=== PATIENT | male | born 1960 | race Caucasian/White ===

== ENCOUNTER 2016-10-19 14:18 | Inpatient (IN) | payer BC, OTHER ==
[~2016-10-19] VITALS: Ht 180.3 cm; Wt 97.6 kg
--- NOTE | 2016-10-19 14:50 | ED GU-Male ---
General Chief Complaint: -Male Stated Complaint: R TESTICAL PAIN Source: patient Exam Limitations: no limitations History of Present Illness Time seen by provider: 14:48 Initial Comments To ER with right testicular pain since 10/15/16. He believes they got "tangled up in his boxers". No dysuria. Pain improved a little bit on 10/16 but then recurred on the and has been constant since then. No fevers or chills. He does have a history of left testicular swelling secondary to mumps orchitis as a young child. Denies any known trauma to the testicle. Primary care is Lizzie Diaz in [place] Timing/Duration: constant, week, getting worse Severity/Quality: moderate Location: scrotal Radiation: none Activities at Onset: none Prior Genitourinary Problems: none Associated Symptoms: No dysuria Allergies and Home Medications Allergies Coded Allergies: No Known Drug Allergies (Unverified , 10/19/16) Home Medications No Active Prescriptions or Reported Meds Constitutional: see HPI EENTM: see HPI Respiratory: no symptoms reported Cardiovascular: no symptoms reported Genitourinary: see HPI Musculoskeletal: no symptoms reported Skin: no symptoms reported Psychiatric/Neurological: No Symptoms Reported Endocrine: No Symptoms Reported Past Twdylvh-Irzuzq-Hmqjpw Hx Patient Social History Recent Foreign Travel: No Contact w/Someone Who Travel: No Physical Exam Vital Signs Vital Sign - Last 12Hours 10/19/16 14:48 Temp 98.5 Pulse 89 Resp 16 B/P (MAP) 132/83 Pulse Ox 97 O2 Delivery Room Air Capillary Refill : General Appearance: WD/WN, no apparent distress HEENT: PERRL/EOMI, normal ENT inspection Neck: non-tender, full range of motion Respiratory: normal breath sounds, no respiratory distress, no accessory muscle use Gastrointestinal: normal bowel sounds, non tender, soft Male: erythema, testicular tenderness (right testicle is markedly enlarged with tenderness. There is erythema of the overlying skin and induration of the overlying skin and I find it difficult to move the scrotal skin over the testicle.) Genital/Rectal: other (there is no crepitus on palpation of the scrotal skin. The skin however is erythematous and adherent to the testicle.) Extremities: normal range of motion, non-tender Neurologic/Psychiatric: alert, normal mood/affect, oriented x 3 Skin: normal color, warm/dry Progress/Results/Core Measures Results/Orders Lab Results Laboratory Tests Test 10/19/16 14:58 Range/Units White Blood Count 18.3 H 4.3-11.0 10^3/uL Red Blood Count 4.45 4.35-5.85 10^6/uL Hemoglobin 15.6 13.3-17.7 G/DL Hematocrit 44 40-54 % Mean Corpuscular Volume 99 80-99 FL Mean Corpuscular Hemoglobin 35 H 25-34 PG Mean Corpuscular Hemoglobin Concent 36 32-36 G/DL Red Cell Distribution Width 13.6 10.0-14.5 % Platelet Count 188 130-400 10^3/uL Mean Platelet Volume 8.9 7.4-10.4 FL Neutrophils (%) (Auto) 86 H 42-75 % Lymphocytes (%) (Auto) 7 L 12-44 % Monocytes (%) (Auto) 7 0-12 % Eosinophils (%) (Auto) 0 0-10 % Basophils (%) (Auto) 0 0-10 % Neutrophils # (Auto) 15.8 H 1.8-7.8 X 10^3 Lymphocytes # (Auto) 1.2 1.0-4.0 X 10^3 Monocytes # (Auto) 1.3 H 0.0-1.0 X 10^3 Eosinophils # (Auto) 0.0 0.0-0.3 10^3/uL Basophils # (Auto) 0.0 0.0-0.1 10^3/uL Neutrophils % (Manual) 86 % Lymphocytes % (Manual) 7 % Monocytes % (Manual) 6 % Eosinophils % (Manual) 0 % Basophils % (Manual) 0 % Band Neutrophils 1 % Blood Morphology Comment NORMAL Sodium Level 137 135-145 MMOL/L Potassium Level 3.8 3.6-5.0 MMOL/L Chloride Level 100 98-107 MMOL/L Carbon Dioxide Level 26 21-32 MMOL/L Anion Gap 11 5-14 MMOL/L Blood Urea Nitrogen 11 7-18 MG/DL Creatinine 0.89 0.60-1.30 MG/DL Estimat Glomerular Filtration Rate > 60 BUN/Creatinine Ratio 12 0-20 Glucose Level 124 H 70-105 MG/DL Calcium Level 9.5 8.5-10.1 MG/DL Total Bilirubin 1.7 H 0.1-1.0 MG/DL Aspartate Amino Transf (AST/SGOT) 17 5-34 U/L Alanine Aminotransferase (ALT/SGPT) 18 0-55 U/L Alkaline Phosphatase 69 40-136 U/L Total Protein 8.1 6.4-8.2 GM/DL Albumin 4.0 3.2-4.5 GM/DL My Orders Orders - RICARDO MANCILLA APRN Ua Culture If Indicated (10/19/16 14:43) Cbc With Automated Diff (10/19/16 14:48) Comprehensive Metabolic Panel (10/19/16 14:48) Us Scrotum (Testicle) [id number] (10/19/16 14:48) Saline Lock/Iv-Start (10/19/16 14:50) Fentanyl Injection (Sublimaze Injection (10/19/16 15:00) Manual Differential (10/19/16 14:58) Blood Culture (10/19/16 15:43) Ceftriaxone Injection (Rocephin Injectio (10/19/16 15:45) Medications Given in ED Current Medications Medications Dose Ordered Sig/Reji Route Start Time Stop Time Status Last Admin Dose Admin Fentanyl Citrate 75 mcg ONCE ONCE IVP 10/19/16 15:00 10/19/16 15:01 DC 10/19/16 15:02 75 MCG Vital Signs/I&O Vital Sign - Last 12Hours 10/19/16 10/19/16 14:48 15:02 Temp 98.5 98.5 Pulse 89 Resp 16 B/P (MAP) 132/83 Pulse Ox 97 O2 Delivery Room Air Diagnostic Imaging Diagonstic Imaging: Ultrasound Comments NAME: LUDIN LARSON [facility] REC#: [id number] PT STATUS: ADM IN : 1960 PHYSICIAN: RICARDO MANCILLA APRN ADMIT DATE: 10/19/16 Signed Date of Exam:10/19/16 US SCROTUM (Testicle) [id number] EXAMINATION: Right testicular pain and swelling. FINDINGS: The right testicle is larger than the left. The right measures 4.4 x 3.5 x 3.3 cm. The left testicle measures 2.7 x 1.5 x 2.1 cm. The patient reportedly has a history of prior left-sided mumps orchitis. Both testicles demonstrate appropriate Doppler flow. There is increased vascularity to the right testicle relative to the left as well as increased vascular flow demonstrated throughout an enlarged right epididymis. There is also some loculated fluid demonstrated throughout the right scrotum. IMPRESSION: 1. Abnormal loculated fluid within the right scrotum about a hypervascular right testicle and enlarged right epididymis. The findings are compatible with epididymal orchitis. Septated fluid may reflect a complex hydrocele though the possibility of a developing pyocele would also be a consideration. 2. Small left testicle maintains a normal Doppler flow. Its small size is reportedly related to a previous remote history of left-sided mumps orchitis. Dictated by: Dictated on workstation # [id number] Dict: 10/19/16 1550 Trans: 10/19/16 1600 [facility] [id number] Interpreted by: LICHA TAMAYO MD Electronically signed by: LICHA TAMAYO MD 10/19/16 1600 Departure Communication Time/Spoke to Admitting Phy: 15:51 Communication Discussed the case with Dr. Engel. We will admit the patient to hospitalist, he will be out of town until tomorrow afternoon at which point he will see the patient. Dr. Choudhary accepts patient for admission. We will consult Dr. Gonzalez should a more urgent surgical intervention be required Time/Spoke to Consulting Physi: 15:53 Communication/Consulting Dr. 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 Referrals: LIZZIE DIAZ (PCP) Primary Care Physician Scripts No Active Prescriptions or Reported Meds RICARDO MANCILLA APRN Oct 19, 2016 14:50
[2016-10-19] MEDS ORDERED: fentaNYL INJECTION 100 MCG/2 ML AMP IVP ONE (15:00)
[2016-10-19 15:09] LABS: BASOPHILS % (AUTO) 0 % (0-10); EOSINOPHILS % (AUTO) 0 % (0-10); LYMPHOCYTES # (AUTO) 1.2 X 10^3 (1.0-4.0); LYMPHOCYTES % (AUTO) 7 % (12-44); MEAN CORPUSCULAR HEMOGLOBIN 35 PG (25-34); MEAN CORPUSCULAR HGB CONC 36 G/DL (32-36); MEAN CORPUSCULAR VOLUME 99 FL (80-99); MEAN PLATELET VOLUME 8.9 FL (7.4-10.4); MONOCYTES # (AUTO) 1.3 X 10^3 (0.0-1.0); MONOCYTES % (AUTO) 7 % (0-12); NEUTROPHILS # (AUTO) 15.8 X 10^3 (1.8-7.8); NEUTROPHILS % (AUTO) 86 % (42-75); PLATELET COUNT 188 10^3/uL (130-400); RED BLOOD COUNT 4.45 10^6/uL (4.35-5.85); RED CELL DISTRIBUTION WIDTH 13.6 % (10.0-14.5); WHITE BLOOD COUNT 18.3 10^3/uL (4.3-11.0)
[2016-10-19 15:31] LABS: ALANINE AMINOTRANSFERASE 18 U/L (0-55); ANION GAP 11 MMOL/L (5-14); ASPARTATE AMINO TRANSFERASE 17 U/L (5-34); BILIRUBIN,TOTAL 1.7 MG/DL (0.1-1.0); BLOOD UREA NITROGEN 11 MG/DL (7-18); BUN/CREATININE RATIO 12 (0-20); CALCIUM 9.5 MG/DL (8.5-10.1); CARBON DIOXIDE 26 MMOL/L (21-32); CHLORIDE 100 MMOL/L (98-107); CREATININE SERUM 0.89 MG/DL (0.60-1.30); GFR ESTIMATED > 60; GLUCOSE 124 MG/DL (70-105); HEMOLYSIS 11 (-100-29); ICTERUS 1.1 (-100-1.9); LIPEMIA -2 (-100-49); POTASSIUM 3.8 MMOL/L (3.6-5.0); SODIUM 137 MMOL/L (135-145); TOTAL PROTEIN 8.1 GM/DL (6.4-8.2)
[2016-10-19 15:35] LABS: BAND NEUTROPHILS 1 %; BASOPHILS % (MANUAL) 0 %; EOSINOPHILS % (MANUAL) 0 %; LYMPHOCYTES % (MANUAL) 7 %; NEUTROPHILS % (MANUAL) 86 %
[2016-10-19] MEDS ORDERED: cefTRIAXone INJECTION 1,000 MG in NS (IVPB) 50 ML IV ONE (15:45)
--- NOTE | 2016-10-19 15:55 | Diagnostic Imaging Report ---
EXAMINATION: Right testicular pain and swelling. FINDINGS: The right testicle is larger than the left. The right measures 4.4 x 3.5 x 3.3 cm. The left testicle measures 2.7 x 1.5 x 2.1 cm. The patient reportedly has a history of prior left-sided mumps orchitis. Both testicles demonstrate appropriate Doppler flow. There is increased vascularity to the right testicle relative to the left as well as increased vascular flow demonstrated throughout an enlarged right epididymis. There is also some loculated fluid demonstrated throughout the right scrotum. IMPRESSION: 1. Abnormal loculated fluid within the right scrotum about a hypervascular right testicle and enlarged right epididymis. The findings are compatible with epididymal orchitis. Septated fluid may reflect a complex hydrocele though the possibility of a developing pyocele would also be a consideration. 2. Small left testicle maintains a normal Doppler flow. Its small size is reportedly related to a previous remote history of left-sided mumps orchitis. Dictated by: Dictated on workstation # [id number]
[2016-10-19] MEDS: NS IV 1000 ML 1,000 ML IV SCH (17:31)
[2016-10-19] MEDS: HYDROcodone/APAP 5 MG/325 MG (LORTAB) TAB PO PRN (18:36)
[2016-10-19 19:30] VITALS: BP 143/79
[2016-10-19] MEDS ORDERED: LOPERAMIDE 2 MG (IMODIUM) CAP PO PRN (20:00)
[2016-10-19] MEDS: LEVOFLOXACIN 750 MG/150 ML IV 150 ML IV SCH (20:41)
[2016-10-19] MEDS: ACETAMINOPHEN 500 MG TAB (TYLENOL) PO PRN (23:03)
[2016-10-20] VITALS (7 sets, daily range): BP systolic 112–149; BP diastolic 65–82
[2016-10-20] MEDS: NS IV 1000 ML 1,000 ML IV SCH ×2 (02:09→10:14)
[2016-10-20] MEDS: ACETAMINOPHEN 500 MG TAB (TYLENOL) PO PRN (05:47)
[2016-10-20 06:26] LABS: BASOPHILS % (AUTO) 0 % (0-10); EOSINOPHILS # (AUTO) 0.1 10^3/uL (0.0-0.3); EOSINOPHILS % (AUTO) 0 % (0-10); LYMPHOCYTES % (AUTO) 8 % (12-44); MEAN CORPUSCULAR HEMOGLOBIN 36 PG (25-34); MEAN CORPUSCULAR HGB CONC 35 G/DL (32-36); MEAN CORPUSCULAR VOLUME 101 FL (80-99); MEAN PLATELET VOLUME 9.3 FL (7.4-10.4); MONOCYTES # (AUTO) 0.9 X 10^3 (0.0-1.0); MONOCYTES % (AUTO) 6 % (0-12); NEUTROPHILS # (AUTO) 11.6 X 10^3 (1.8-7.8); NEUTROPHILS % (AUTO) 86 % (42-75); PLATELET COUNT 173 10^3/uL (130-400); RED BLOOD COUNT 3.88 10^6/uL (4.35-5.85); RED CELL DISTRIBUTION WIDTH 13.5 % (10.0-14.5); WHITE BLOOD COUNT 13.5 10^3/uL (4.3-11.0)
[2016-10-20] MEDS: HYDROcodone/APAP 5 MG/325 MG (LORTAB) TAB PO PRN (07:49)
--- NOTE | 2016-10-20 12:39 | History & Physical-Hospitalist ---
HPI History of Present Illness: HPI/Chief Complaint CC: Right testicular pain and edema HPI: This is a 56-year-old white male with minimal medical history the presents to the emergency room with a few days history of right testicular pain and swelling. He started running a fever and overall feeling badly so he presented to the ER found to have abscess and cellulitis formation of the right testicle that did not appear to have an emergent surgical situation but in need of IV antibiotics pain control and monitoring closely. At this current time patient feels much better but is hungry and remains nothing by mouth until Dr. Engel evaluates the patient. Source: patient Exam Limitations: no limitations Date Seen 10/20/16 Time Seen by Provider: 11:15 Attending Physician Iris Choudhary Diana K Pa Referring Physician Date of Admission Oct 19, 2016 at 15:59 Home Medications & Allergies Home Medications Reviewed patient Home Medication Reconciliation Form Allergies Allergies Coded Allergies No Known Drug Allergies (Unverified10/19/16) Past Tdqbblm-Uriked-Ukpudt Hx Patient Social History Marrital Status: Employed/Student: employed ([employer]) Alcohol Use: Regular Use Recreational Drug Use: No Smoking Status: Current Everyday Smoker (oral tobacco) Type Used: Smokeless Tobacco 2nd Hand Smoke Exposure: No Physical Abuse Screen: No Sexual Abuse: No Recent Foreign Travel: No Contact w/other who traveled: No Recent Hopitalizations: No Recent Infectious Disease Expo: No Immunizations Up To Date Tetanus Booster (TDap): Less than 5yrs Date of Influenza Vaccine: Jan 27, 2016 Seasonal Allergies Seasonal Allergies: No Surgeries HX Surgeries: Yes Surgeries: Orthopedic Respiratory Hx Respiratory Disorders: No Cardiovascular Hx Cardiovascular Disorders: No Neurological Hx Neurological Disorders: No Genitourinary Hx Genitourinary Disorders: No Gastrointestinal Hx Gastrointestinal Disorders: No Musculoskeletal Hx Musculoskeletal Disorders: No Endocrine Hx Endocrine Disorders: No HEENT HX ENT Disorders: No Cancer Hx Cancer: No Psychosocial Hx Psychiatric Problems: No Family Medical History Family Hx: Stroke 19 MOTHER Review of Systems Date Seen by Provider: Oct 20, 2016 Time Seen by Provider: 11:15 Constitutional: chills, fever, weakness EENTM: no symptoms reported Respiratory: no symptoms reported Cardiovascular: no symptoms reported Gastrointestinal: no symptoms reported Genitourinary: pain Musculoskeletal: no symptoms reported Skin: no symptoms reported Psychiatric/Neurological: No Symptoms Reported All Other Systems Reviewed Negative Unless Noted: Yes Physical Exam Physical Exam Vital Signs Vital Sign - Last 12Hours 10/19/16 14:48 Temp 98.5 Pulse 89 Resp 16 B/P (MAP) 132/83 Pulse Ox 97 O2 Delivery Room Air Capillary Refill : Less Than 3 Seconds General Appearance: No Apparent Distress, WD/WN Eyes: Bilateral Eye Normal Inspection, Bilateral Eye PERRL HEENT: PERRL/EOMI, Normal ENT Inspection, Pharynx Normal Neck: Full Range of Motion, Normal Inspection, Non Tender, Supple, Carotid Bruit Respiratory: Chest Non Tender, Lungs Clear, Normal Breath Sounds, No Accessory Muscle Use, No Respiratory Distress Cardiovascular: Regular Rate, Rhythm, No Edema, No Gallop, No JVD, No Murmur, Normal Peripheral Pulses Gastrointestinal: Normal Bowel Sounds, No Organomegaly, No Pulsatile Mass, Non Tender, Soft Genital/Rectal: Other (Dr Gonzalez evaluated the right testical prior to my exam) Back: Normal Inspection, No CVA Tenderness, No Vertebral Tenderness Extremity: Normal Capillary Refill, Normal Inspection, Normal Range of Motion, Non Tender, No Calf Tenderness, No Pedal Edema Neurologic/Psychiatric: Alert, Oriented x3, No Motor/Sensory Deficits, Normal Mood/Affect Skin: Normal Color, Warm/Dry Lymphatic: No Adenopathy Results Results/Procedures Lab Laboratory Tests 10/19/16 14:58 10/20/16 05:59 Assessment/Plan Admission Diagnosis Assessment: Acute right testicular cellulitis with abscess Oral tobacco user Leukocytosis with fever due to cellulitis Assessment and Plan Plan: Maintain empiric antibiotics Appreciate Dr. Gonzalez's evaluation until Dr. Engel evaluates the patient this evening Nothing by mouth in case procedure needed Ambulate Pain medication Clinical Quality Measures DVT/VTE Risk/Contraindication: Risk Factor Score Per Nursin RFS Level Per Nursing on Admit: 2=Moderate IRIS CHOUDHARY DO Oct 20, 2016 12:39
[2016-10-20] MEDS: cefTRIAXone INJECTION 1,000 MG in NS (IVPB) 50 ML IV SCH (14:55)
[2016-10-20] MEDS: 1/2 NS IV SOLUTION 1,000 ML IV SCH (14:55)
--- NOTE | 2016-10-20 15:55 | Consultation ---
History of Present Illness History of Present Illness Patient Consulted On(yanira/time) 10/20/16 11:49 Date of Admission History of Present Illness Consult requested by Dr. Choudhary for right scrotal pain fluid collection. Patient states that he began having swelling and pain in the scrotum 4 days ago and has now stayed about the same size for 3 days. Patient having pain in right testicle. Denies any injury to testicle. Has had fever. States some difficulty with urination. Was found to have a wbc of 18 k on admission today down to 13k. Had an u/s performed of scrotum noting inflamed epididymis with complex fluid collection suggestive of hydrocele or developing pyocele. Patient pain under control at this time. NPO at this time. Allergies and Home Medications Allergies Coded Allergies: No Known Drug Allergies (Unverified , 10/19/16) Home Medications No Active Prescriptions or Reported Meds Past Bmkoxla-Gdrahm-Pyxcjx Hx Patient Social History Alcohol Use: Regular Use Recreational Drug Use: No Smoking Status: Current Everyday Smoker (oral tobacco) Type Used: Smokeless Tobacco 2nd Hand Smoke Exposure: No Recent Foreign Travel: No Contact w/Someone Who Travel: No Recent Infectious Disease Expo: No Recent Hopitalizations: No Physical Abuse Screen: No Sexual Abuse: No Immunizations Up To Date Tetanus Booster (TDap): Less than 5yrs PED Vaccines UTD: Yes Date of Influenza Vaccine: Jan 27, 2016 Seasonal Allergies Seasonal Allergies: No Surgeries HX Surgeries: Yes Surgeries: Orthopedic Respiratory Hx Respiratory Disorders: No Cardiovascular Hx Cardiac Disorders: No Neurological Hx Neurological Disorders: No Genitourinary Hx Genitourinary Disorders: No Gastrointestinal Hx Gastrointestinal Disorders: No Musculoskeletal Hx Musculoskeletal Disorders: No Endocrine Hx Endocrine Disorders: No HEENT HX ENT Disorders: No Cancer Hx Cancer: No Psychosocial Hx Psychiatric Problems: No Family Medical History Significant Family History: No Pertinent Family Hx Family Medial History: Stroke 19 MOTHER Review of Systems-General Date Seen by Provider: Oct 20, 2016 Time Seen by Provider: 11:45 Constitutional: fever EENTM: no symptoms reported Respiratory: no symptoms reported Cardiovascular: no symptoms reported Gastrointestinal: no symptoms reported Genitourinary: see HPI Musculoskeletal: no symptoms reported Skin: no symptoms reported Psychiatric/Neurological: No Symptoms Reported Physical Exam-General Problems Physical Exam Vital Signs Vital Sign - Last 12Hours 10/19/16 14:48 Temp 98.5 Pulse 89 Resp 16 B/P (MAP) 132/83 Pulse Ox 97 O2 Delivery Room Air Capillary Refill : Less Than 3 Seconds General Appearance: no apparent distress HEENT: PERRL/EOMI, normal ENT inspection Neck: non-tender, supple Respiratory: chest non-tender, no respiratory distress, no accessory muscle use Cardiovascular: regular rate, rhythm Gastrointestinal: non tender, soft Genital/Rectal: other (right testicle tender and enlarged compared left. 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, alert, normal mood/affect, oriented x 3 Skin: other (scrotal erythema) Data Review Labs Laboratory Tests 10/20/16 05:59: White Blood Count 13.5H, Red Blood Count 3.88L, Hemoglobin 13.8, Hematocrit 39L , Mean Corpuscular Volume 101H, Mean Corpuscular Hemoglobin 36H, Mean Corpuscular Hemoglobin Concent 35, Red Cell Distribution Width 13.5, Platelet Count 173, Mean Platelet Volume 9.3, Neutrophils (%) (Auto) 86H, Lymphocytes (% ) (Auto) 8L, Monocytes (%) (Auto) 6, Eosinophils (%) (Auto) 0, Basophils (%) ( Auto) 0, Neutrophils # (Auto) 11.6H, Lymphocytes # (Auto) 1.0, Monocytes # (Auto ) 0.9, Eosinophils # (Auto) 0.1, Basophils # (Auto) 0.0 Microbiology 10/19/16 Blood Culture - Preliminary, Resulted No growth Assessment/Plan Assessment/Plan Assessment/Plan right testicular pain epididymal orchitis right complex hydrocele vs pyocele by u/s leukocytosis No emergent need for surgical intervention Discussed with Dr. Engel Will sign off at this time and defer to urology Clinical Quality Measures DVT/VTE Risk/Contraindication: Risk Factor Score Per Nursin RFS Level Per Nursing on Admit: 2=Moderate JUDI SCHMITT DO Oct 20, 2016 15:54
[2016-10-20] MEDS: morphine INJ 4 MG/ML 1 ML (VIAL/SYRINGE) IVP PRN ×2 (17:22→23:36)
[2016-10-20] MEDS: LEVOFLOXACIN 750 MG/150 ML IV 150 ML IV SCH (20:19)
[2016-10-21] MEDS: HYDROcodone/APAP 5 MG/325 MG (LORTAB) TAB PO PRN ×4 (00:48→20:07)
[2016-10-21] MEDS: 1/2 NS IV SOLUTION 1,000 ML IV SCH (03:37)
[2016-10-21 04:00] VITALS: BP 131/70
[2016-10-21 06:24] LABS: BASOPHILS % (AUTO) 0 % (0-10); EOSINOPHILS # (AUTO) 0.1 10^3/uL (0.0-0.3); EOSINOPHILS % (AUTO) 1 % (0-10); LYMPHOCYTES # (AUTO) 1.2 X 10^3 (1.0-4.0); LYMPHOCYTES % (AUTO) 14 % (12-44); MEAN CORPUSCULAR HEMOGLOBIN 35 PG (25-34); MEAN CORPUSCULAR HGB CONC 35 G/DL (32-36); MEAN CORPUSCULAR VOLUME 99 FL (80-99); MEAN PLATELET VOLUME 8.7 FL (7.4-10.4); MONOCYTES # (AUTO) 0.6 X 10^3 (0.0-1.0); MONOCYTES % (AUTO) 7 % (0-12); NEUTROPHILS % (AUTO) 79 % (42-75); PLATELET COUNT 201 10^3/uL (130-400); RED BLOOD COUNT 3.88 10^6/uL (4.35-5.85); RED CELL DISTRIBUTION WIDTH 13.6 % (10.0-14.5); WHITE BLOOD COUNT 8.9 10^3/uL (4.3-11.0)
--- NOTE | 2016-10-21 07:00 | Progress Note-Urology ---
Progress Note-Urology Progress Notes/Assess & Plan Progress/Assessment & Plan CONTINUE IMPROVING. SWELLING, TENDERNESS, AND HYPEREMIA BETTER. WBC 8.9. US THIS AM Final Diagnosis RT EPIDIDYMOORCHITIS JAMARCUS BUCKLEY MD Oct 21, 2016 07:00
--- NOTE | 2016-10-21 07:00 | CONSULTATION REPORT ---
DATE OF SERVICE: 10/20/2016 SUMMARY: After reviewing the patient's record, his ultrasound and labs, interviewing him and examining him, this is a 56-year-old white man in general good health, who about Friday started having pain and swelling in his right testicle from heavy lifting, it was getting gradually worse. He presented to the Emergency Room yesterday with swelling and pain in his right scrotum. An ultrasound of the testicles confirmed the right epididymo-orchitis and some reactive hydro or pyocele with loculation. However, no evidence of testicular abscess. I was contacted by the Emergency Room and recommended to admit the patient because of his white count of 18,000 and to avoid conversion to abscess at home and starting him on Rocephin and Levaquin 750 mg daily of both, bed rest with bathroom privilege, scrotal support and ice and mange accordingly. The patient stated that he is feeling and getting somewhat better. He is hungry, he has been n.p.o. in case of surgical procedure. The patient is otherwise healthy. Denies any medications. He has no known drug allergies. PERSONAL HISTORY: He is single. No children. Regularly drinks alcohol. Chews tobacco. No illicit drugs. PAST SURGICAL HISTORY: Surgery cat, had bilateral knee surgeries. No replacement, just for cartilage. No previous vasectomy. FAMILY HISTORY: CVA. REVIEW OF SYSTEMS: Negative otherwise, in all systems. PHYSICAL EXAMINATION: VITAL SIGNS: Normal. His white count went down to 13,000. GENERAL: Well nourished, well developed, in no acute distress. HEAD: Normocephalic. ENT: Unremarkable. NECK: Supple. No bruits. CHEST: Clear, nontender. HEART: Regular rate and rhythm, no murmur. ABDOMEN: Soft. Obese. GENITOURINARY: Phallus normal. Scrotum, the right side is enlarged and hyperemic. The left testicle is descended and normal. The right testicle feels normal. The epididymis is enlarged and firm and tender. LOWER EXTREMITIES: No edema or cyanosis. NEUROLOGIC: Grossly intact, oriented x3. RECTAL EXAM: Deferred. IMPRESSION: Right epididymo-orchitis with reactive hydrocele or pyocele, but no evidence of abscess. PLAN: Continue IV antibiotic, go ahead and see the patient. Tomorrow, we will repeat a CBC and the ultrasound of the testicle and manage accordingly. Job ID: [id number] DocumentID: [id number] Dictated Date: 10/20/2016 14:31:52 Manager Neonatal Date: 10/20/2016 22:44:03 Dictated By: JAMARCUS BUCKLEY MD
[2016-10-21] MEDS: morphine INJ 4 MG/ML 1 ML (VIAL/SYRINGE) IVP PRN (07:52)
[2016-10-21 08:00] VITALS: BP 134/70
[2016-10-21 08:17] LABS: ALANINE AMINOTRANSFERASE 15 U/L (0-55); ALBUMIN 3.2 GM/DL (3.2-4.5); ANION GAP 7 MMOL/L (5-14); ASPARTATE AMINO TRANSFERASE 21 U/L (5-34); BILIRUBIN,TOTAL 0.5 MG/DL (0.1-1.0); BLOOD UREA NITROGEN 9 MG/DL (7-18); BUN/CREATININE RATIO 12 (0-20); CALCIUM 8.3 MG/DL (8.5-10.1); CARBON DIOXIDE 26 MMOL/L (21-32); CHLORIDE 102 MMOL/L (98-107); CREATININE SERUM 0.73 MG/DL (0.60-1.30); GFR ESTIMATED > 60; GLUCOSE 105 MG/DL (70-105); HEMOLYSIS 11 (-100-29); ICTERUS 0.3 (-100-1.9); LIPEMIA -2 (-100-49); POTASSIUM 3.7 MMOL/L (3.6-5.0); SODIUM 135 MMOL/L (135-145); TOTAL PROTEIN 6.7 GM/DL (6.4-8.2)
[2016-10-21] MEDS ORDERED: CATHETER FLUSH 10 ML SYR IV PRN (08:45)
--- NOTE | 2016-10-21 09:44 | Progress Note-Hospitalist ---
Progress Note HPI/CC on Admission CC: Right testicular pain and edema HPI: This is a 56-year-old white male with minimal medical history the presents to the emergency room with a few days history of right testicular pain and swelling. He started running a fever and overall feeling badly so he presented to the ER found to have abscess and cellulitis formation of the right testicle that did not appear to have an emergent surgical situation but in need of IV antibiotics pain control and monitoring closely. At this current time patient feels much better but is hungry and remains nothing by mouth until Dr. Engel evaluates the patient. Progress Notes/Assess & Plan Date Seen 10/21/16 Time Seen by Provider: 09:00 Admission Dx/Process Assessment: Acute right testicular cellulitis with abscess Oral tobacco user Leukocytosis with fever due to cellulitis Diagonsis/Assessment & Plan Patient doing much better and Dr. Engel assessed the patient did not require surgery since ultrasound is still pending that we'll follow along White count is now normal Pain is much improved Overall doing well no BM yet No fever, vital signs stable, pleasant, improved Regular rate and rhythm, clear to auscultation bilaterally No edema Laboratory Tests 10/21/16 06:13 Assessment: Acute right testicular cellulitis with abscess Oral tobacco user Leukocytosis with fever due to cellulitis improved Constipation Plan: Maintain empiric antibiotics Ambulate Pain medication BM regimen JARVIS GAYTAN DO Oct 21, 2016 09:44
--- NOTE | 2016-10-21 10:53 | Diagnostic Imaging Report ---
INDICATION: Followup right scrotal pain. COMPARISON: 10/19/2016. DISCUSSION: Sonographic evaluation of the scrotum was performed. The left testicle remains mildly atrophied measuring 2.7 x 1.7 x 2.8 cm with normal color Doppler blood flow. The right testicle measures 4.1 x 3.5 x 3.5 cm. The right testicle remains mildly hypervascular suggesting underlying infection. The right epididymis is also enlarged and hypervascular, findings consistent with right-sided epididymoorchitis, not significantly changed from the previous exam. A complex septated moderate right hydrocele is again noted. No significant interval change is identified. The hydrocele is likely reactive. The scrotal wall is unremarkable. IMPRESSION: Sonographic findings of right-sided epididymoorchitis appearing essentially stable. The complex appearing moderate right hydrocele is also stable, likely reactive. Recommend continued clinical correlation and sonographic followup as indicated. Dictated by: Dictated on workstation # [id number]
[2016-10-21] MEDS: LACTULOSE SYRUP 10GM/15ML (ENULOSE) 30ML UDC PO SCH ×2 (11:07→20:07)
[2016-10-21 12:00] VITALS: BP 111/61
[2016-10-21] MEDS: cefTRIAXone INJECTION 1,000 MG in NS (IVPB) 50 ML IV SCH (15:25)
[2016-10-21] MEDS: CATHETER FLUSH 10 ML SYR IV SCH ×2 (15:25→22:00)
[2016-10-21 16:15] VITALS: BP 152/76
[2016-10-21 19:50] VITALS: BP 147/85
[2016-10-21] MEDS ORDERED: LEVOFLOXACIN 750 MG TAB (LEVAQUIN) PO SCH (20:00)
[2016-10-22] VITALS (7 sets, daily range): BP systolic 140–166; BP diastolic 70–87
[2016-10-22] MEDS: HYDROcodone/APAP 5 MG/325 MG (LORTAB) TAB PO PRN ×4 (03:51→23:58)
[2016-10-22 06:11] LABS: BASOPHILS % (AUTO) 0 % (0-10); EOSINOPHILS # (AUTO) 0.2 10^3/uL (0.0-0.3); EOSINOPHILS % (AUTO) 3 % (0-10); LYMPHOCYTES # (AUTO) 0.8 X 10^3 (1.0-4.0); LYMPHOCYTES % (AUTO) 11 % (12-44); MEAN CORPUSCULAR HEMOGLOBIN 35 PG (25-34); MEAN CORPUSCULAR HGB CONC 35 G/DL (32-36); MEAN CORPUSCULAR VOLUME 98 FL (80-99); MEAN PLATELET VOLUME 8.9 FL (7.4-10.4); MONOCYTES # (AUTO) 0.4 X 10^3 (0.0-1.0); MONOCYTES % (AUTO) 6 % (0-12); NEUTROPHILS # (AUTO) 5.6 X 10^3 (1.8-7.8); NEUTROPHILS % (AUTO) 80 % (42-75); PLATELET COUNT 209 10^3/uL (130-400); RED BLOOD COUNT 3.79 10^6/uL (4.35-5.85); RED CELL DISTRIBUTION WIDTH 13.3 % (10.0-14.5)
[2016-10-22] MEDS: CATHETER FLUSH 10 ML SYR IV SCH ×3 (06:13→20:24)
[2016-10-22 06:39] LABS: ALANINE AMINOTRANSFERASE 27 U/L (0-55); ALBUMIN 3.3 GM/DL (3.2-4.5); ANION GAP 11 MMOL/L (5-14); ASPARTATE AMINO TRANSFERASE 28 U/L (5-34); BILIRUBIN,TOTAL 0.5 MG/DL (0.1-1.0); BLOOD UREA NITROGEN 11 MG/DL (7-18); BUN/CREATININE RATIO 15 (0-20); CALCIUM 8.5 MG/DL (8.5-10.1); CARBON DIOXIDE 20 MMOL/L (21-32); CHLORIDE 105 MMOL/L (98-107); CREATININE SERUM 0.71 MG/DL (0.60-1.30); GFR ESTIMATED > 60; GLUCOSE 111 MG/DL (70-105); HEMOLYSIS 14 (-100-29); ICTERUS 0.3 (-100-1.9); LIPEMIA 2 (-100-49); POTASSIUM 3.8 MMOL/L (3.6-5.0); SODIUM 136 MMOL/L (135-145); TOTAL PROTEIN 6.5 GM/DL (6.4-8.2)
--- NOTE | 2016-10-22 07:47 | Progress Note-Urology ---
Progress Note-Urology Progress Notes/Assess & Plan Progress/Assessment & Plan AFEBRILE, VSS, CONTINUES WELL, POSSIBLE DISCHARGE TOMORROW ON LEVAQUIN AND CEFTIN AND FOLLOW UP AT OFFICE IN 2 WEEKS Final Diagnosis RT EPIDIDYMOORCHITIS JAMARCUS BUCKLEY MD Oct 22, 2016 07:47
[2016-10-22] MEDS: LACTULOSE SYRUP 10GM/15ML (ENULOSE) 30ML UDC PO SCH ×2 (08:04→20:24)
--- NOTE | 2016-10-22 10:56 | Progress Note-Hospitalist ---
Standard Progress Note Progress Notes/Assess & Plan Date Seen 10/22/16 Time Seen by Provider: 10:46 Diagnosis Assessment: Acute right testicular cellulitis with abscess Oral tobacco user Leukocytosis with fever due to cellulitis Assess & Plan/Chief Complaint The patient is a 56-year-old white male who reported that he began to have pain in his right testicle on Saturday 10/14. The testicle then began to get ever larger. He also noted some burning on urination. He had no previous history of epididymitis or urinary tract infections. He finally appeared at the emergency room on Thursday 10/19 and was evaluated and admitted. His been seen by Dr. Engel who has established the diagnosis. He has been on IV antibiotics and reports that he is clearly better but still has a long ways to go. Dr. Engel recommends at 1 more day of IV antibiotics and then home on dual oral therapy. Physical exam: The patient appears comfortable and is resting in bed. Lungs are clear to auscultation. CV is regular without murmur. The right testicle is quite large and somewhat boggy. It appears there may be some small amount of fluid about the left testicle as well. The left testicle is not tender and its outline is easily palpated. Impression: epididymitis, right side Plan: Continue antibiotic therapy Labs Laboratory Tests 10/21/16 06:13 10/22/16 05:45 LUCIAN STINSON MD Oct 22, 2016 10:56
[2016-10-22] MEDS: cefTRIAXone INJECTION 1,000 MG in NS (IVPB) 50 ML IV SCH (14:53)
[2016-10-23] MEDS: CATHETER FLUSH 10 ML SYR IV SCH (06:02)
--- NOTE | 2016-10-23 06:49 | Progress Note-Urology ---
Progress Note-Urology Progress Notes/Assess & Plan Progress/Assessment & Plan DOING WELL, OK TO DISCHARGE AGUERO 1. GIVE RX FOR CIPRO 500 BID FOR 10 DAYS AND CEFTIN 500 BID FOR 10 DAYS 2. HAS FOLLOW UP IN MY OFFICE IN 2 WEEKS, REST TILL THEN, NO WORK OR STRAINING OR HEAVY LIFTING, SEX, OR DRIVING 3. KEEP BOWELS SOFT AND MOVING 4.BABY POWDER OR HYDROCORTISONE CREAM TO SCROTUM PRN Final Diagnosis RT EPIDIDYMOORCHITIS JAMARCUS BUCKLEY MD Oct 23, 2016 6:49 am
[2016-10-23 08:00] VITALS: BP 135/63
[2016-10-23] MEDS: LACTULOSE SYRUP 10GM/15ML (ENULOSE) 30ML UDC PO SCH (08:14)
[2016-10-23] MEDS: HYDROcodone/APAP 5 MG/325 MG (LORTAB) TAB PO PRN (09:48)
[2016-10-23] MEDS ORDERED: CEFP500T4 PO (11:35)
[2016-10-23] MEDS ORDERED: HYDR-3812 PO (11:35)
[2016-10-23] MEDS ORDERED: CIPR-225 PO (11:35)
--- NOTE | 2016-10-23 11:40 | Discharge Summary-Hospitalist ---
Diagnosis/Chief Complaint Date of Admission Oct 19, 2016 at 15:59 Date of Discharge Discharge Date: Oct 23, 2016 Admission Diagnosis Assessment: Acute right testicular cellulitis with abscess Oral tobacco user Leukocytosis with fever due to cellulitis Discharge Diagnosis Assessment: Acute right testicular cellulitis with early abscess Oral tobacco user Leukocytosis with fever due to cellulitis Patient doing much better and Dr. Engel assessed the patient did not require surgery since ultrasound is still pending that we'll follow along White count is now normal Pain is much improved Overall doing well no BM yet No fever, vital signs stable, pleasant, improved Regular rate and rhythm, clear to auscultation bilaterally No edema Laboratory Tests 10/21/16 06:13 Assessment: Acute right testicular cellulitis with abscess Oral tobacco user Leukocytosis with fever due to cellulitis improved Constipation Plan: Maintain empiric antibiotics Ambulate Pain medication BM regimen Reason Hospital Visit/Course CC: Right testicular pain and edema HPI: This is a 56-year-old white male with minimal medical history the presents to the emergency room with a few days history of right testicular pain and swelling. He started running a fever and overall feeling badly so he presented to the ER found to have abscess and cellulitis formation of the right testicle that did not appear to have an emergent surgical situation but in need of IV antibiotics pain control and monitoring closely. At this current time patient feels much better but is hungry and remains nothing by mouth until Dr. Engel evaluates the patient. Notes from 10/23/16 [facility] Chart Review: Max fever 100.[address] Engel updated me and gave med recommendation for DC. Pt will be on Cipro 500 mg bid and Ceftin 500 mg BID for 10 days Patient Interview: Pt was informed that he will see Dr. Engel in his office Pt would like to use [facility] [employer] for pharmacy Pt has been trying to stay off his pain meds but just took one this morning Physical exam stable. Lungs sound perfect No fever, vital signs stable, pleasant, improved Regular rate rhythm, clear to auscultation bilaterally No edema Plan: Send Cipro 500 mg BID and Cefprozil [address] [facility] [employer] Scribed by Meghana Orozco under the direct supervision of Dr. Choudhary. Hospital course: Patient had a brief hospital course he was placed on IV antibiotics for testicular cellulitis and ultrasound showed no evidence of any abscess that needed to be surgically drained. Urology managed the case and will have close follow-up to evaluate any need for further procedures and prevention. Discharge Summary Discharge Physical Examination Allergies: Coded Allergies: No Known Drug Allergies (Unverified , 10/19/16) Vitals & I&Os Vital Signs Date Time Temp Pulse Resp B/P (MAP) Pulse Ox O2 Delivery O2 Flow Rate FiO2 10/23/16 13:02 10/23/16 08:00 98.9 60 20 96 Room Air Hospital Course Labs (last 24 hrs) Laboratory Tests 10/22/16 15:09: Lab Scanned Report Transfusion Reaction Form Microbiology 10/19/16 Blood Culture - Preliminary, Resulted No growth Discharge Home Medications: Active Scripts Active Cefprozil 500 Mg Tablet 500 Mg PO BID Cipro (Ciprofloxacin HCl) 500 Mg Tablet 500 Mg PO BID Hydrocodon -Acetaminophen 5-325 (Hydrocodone/Acetaminophen) 1 Each Tablet 1 Tab PO Q4H PRN Instructions to patient/family Please see electonic discharge instructions given to patient. Clinical Quality Measures DVT/VTE Risk/Contraindication: Risk Factor Score Per Nursin RFS Level Per Nursing on Admit: 2=Moderate JARVIS CHOUDHARY DO Oct 23, 2016 11:40
== END 2016-10-23 13:02 | disposition home or self-care (01) | DRG 728 ==
LOC: EDUNIT# 14:18 → ER 14:20 → 4TH 15:59
PROVIDERS: ADMIT Internal Medicine; ATTEND Internal Medicine
DX: N45.3 Epididymo-orchitis (principal); F17.220 Nicotine dependence, chewing tobacco, uncomplicated; K59.00 Constipation, unspecified
CPT/HCPCS: 36415; 76870; 80053; 85007; 85025; 85027; 87040; 96374; 96375

== ENCOUNTER → 2018-01-09 | Outpatient (CLI) | payer OTHER ==
[~2018-01-09] MED LIST: ACHD5005 PO; CEFP500T4 PO; CIPR-225 PO
--- NOTE | 2018-01-09 17:08 | Diagnostic Imaging Report ---
EXAM: Ribs, left 2-3 views. INDICATION: Rib pain on left side. COMPARISON: None. FINDINGS: Mildly displaced left lateral seventh and eighth rib fractures. Mild atelectasis or infiltrate in the left lateral lung base. No pleural effusion. No left pneumothorax. IMPRESSION: 1. Mildly displaced left lateral seventh and eighth rib fractures. 2. Mild atelectasis or infiltrate in the left costophrenic angle. Dictated by: Dictated on workstation # [id number]
== END ==
LOC: RAD 16:34
PROVIDERS: ATTEND Nurse Practitioner Family
DX: S22.42XA Multiple fractures of ribs, left side, initial encounter for closed fracture (principal)
CPT/HCPCS: 71100